=== PATIENT | female | born 1960 ===

== ENCOUNTER → 2019-08-20 09:55 | Outpatient (CLI) | payer OTHER, SELFPAY ==
--- NOTE | ~2019-08-20 | CT_ITS ---
EXAMINATION: CT sinus wo con DATE: 08/20/2019 10:28 INDICATION: Chronic congestion. Chronic pansinusitis TECHNIQUE: Computed tomography (CT) of the paranasal sinuses was performed without contrast. Iterativ e reconstruction technique was employed. Exam dose: 287.97 mGy-cm total exam DLP. COMPARISON: None FINDINGS: There is leftward deviation of the nasal septum. Magy bullosa and interlamellar cell of right middle nasal turbinate. Mild partially opacified intralamellar cell of left middle nasal turbinate. The nasal turbinates othe rwise are relatively symmetric. There are air-fluid levels in both maxillary sinuses and mild mucoperiosteal thickening as well. There is patchy soft tissue thickening of the ethmoid air cells bilaterally. The frontal and sphenoid sinuses are normally developed and aerated. The mastoid air cells are normally developed and aerated bilaterally. Middle and inner ear apparatus appear normal bilaterally. IMPRESSION: Bilateral maxillary sinusitis with air-fluid levels Patchy soft tissue thickening of the ethmoid air cells bilaterally. Magy bullosa and interlamellar cell of right middle nasal turbinate Interlamellar cell, partially opacified, of left middle nasal turbinate Leftward deviation of nasal septum Reviewed, dictated and finalized at [facility]. Reviewed, dictated and finalized at [facility].
== END ==
PROVIDERS: Visit Provider Otolaryngology
DX: J32.9 Chronic sinusitis, unspecified (principal); J34.89 Other specified disorders of nose and nasal sinuses; J34.3 Hypertrophy of nasal turbinates; J34.2 Deviated nasal septum
CPT/HCPCS: 70486